=== PATIENT | female | born 1980 | race American Indian/Alaskan Native ===

== ENCOUNTER 2019-08-25 23:42 | Emergency (ER) | payer SELFPAY ==
[2019-08-25 23:48] VITALS: BP 144/73
[2019-08-26 00:55] LABS: Basophils # (Auto) 0.1 K/mm3 (0.0-0.1); Eosinophils # (Auto) 0.3 K/mm3 (0.0-0.4); Eosinophils % (Auto) 3.9 % (0.0-4.3); Hematocrit 23.6 % (30.3-42.9); Hemoglobin 7.5 gm/dl (10.1-14.3); Lymphocytes # (Auto) 2.2 K/mm3 (1.2-5.4); Lymphocytes % (Auto) 29.2 % (13.4-35.0); Mean Corpuscular HGB Conc 32 % (30-34); Monocytes # (Auto) 0.6 K/mm3 (0.0-0.8); Monocytes % (Auto) 8.2 % (0.0-7.3); Platelet Count 416 K/mm3 (140-440); Red Blood Count 3.68 M/mm3 (3.65-5.03); Red Cell Distribution Width 17.6 % (13.2-15.2)
[2019-08-26 00:56] LABS: Bacteria,Urine 1+ /HPF (Negative); Bilirubin,Urine NEG (Negative); Blood,Urine LG (Negative); Color,Urine Yellow (Yellow); Mucus,Urine FEW /HPF; Protein,Urine <15 mg/dL mg/dL (Negative); Urobilinogen,Urine < 2.0 mg/dL (<2.0)
[2019-08-26 01:00] LABS: Mean Corpuscular Volume 64 fl (79-97)
--- NOTE | 2019-08-26 02:06 | Emergency Department Report ---
ED Female HPI - General Chief complaint: Vaginal Bleeding Stated complaint: ABD PAIN Time Seen by Provider: 08/26/19 02:05 Source: patient Mode of arrival: Ambulatory Limitations: No Limitations - History of Present Illness Initial comments: Patient is a 39-year-old female that presents emergency room with complaints of vaginal bleeding and lower abdominal pain. Patient states her vaginal bleeding and abdominal pain started 30 days ago. Patient states that she went to another hospital and was found to have an ectopic and was given IM methotrexate. Patient was discharged from the hospital same day on 07/28/2019. Patient states her abdominal pain and vaginal bleeding or worsening. Patient states her abdominal pain is 8 out of 10. Patient describes the abdominal pain is lower abdominal pressure. Patient states the pain is better with rest and worse with movement and palpation. Patient denies nausea vomiting. Patient states she has not followed up or seen an SHIFT STACKER or had a repeat ultrasound since her initial ultrasound on 07/28/2019. Patient states she is not sexually active. She denies fever and chills. MD Complaint: vaginal bleeding, pelvic pain -: Gradual Location: suprapubic Severity: severe Quality: cramping, aching Consistency: constant Improves with: other Worsens with: movement, other Are you Now?: No Associated Symptoms: vaginal bleeding, abdominal pain. denies: vaginal discharge, nausea/vomiting, fever/chills, headaches, loss of appetite, dysuria, hematuria, rash, seizure, shortness of breath, syncope, weakness - Related Data Sexually active: No : 3 Para: 2 A: 1 Previous Rx's Medication Instructions Recorded Last Taken Type Iron Fum,Ps/Folic/Bcomp,C No.9 1 each PO BID 30 Days #60 capsule 08/26/19 Unknown Rx [Integra Plus Capsule] Allergies Allergy/AdvReac Type Severity Reaction Status Date / Time Penicillins Allergy Hives Verified 08/26/19 00:03 ED Review of Systems ROS: Stated complaint: ABD PAIN Other details as noted in HPI Constitutional: denies: chills, fever Eyes: denies: eye pain, eye discharge, vision change ENT: denies: ear pain, throat pain Respiratory: denies: cough, shortness of breath, wheezing Cardiovascular: denies: chest pain, palpitations Endocrine: no symptoms reported Gastrointestinal: abdominal pain. denies: nausea, diarrhea Genitourinary: abnormal menses. denies: urgency, dysuria, discharge Musculoskeletal: denies: back pain, joint swelling, arthralgia Skin: denies: rash, lesions Neurological: denies: headache, weakness, paresthesias Psychiatric: denies: anxiety, depression Hematological/Lymphatic: denies: easy bleeding, easy bruising ED Past Medical Hx - Past Medical History Previous Medical History?: Yes Additional medical history: Ectopic . Uterine fibroids. - Surgical History Past Surgical History?: No - Family History Family history: no significant - Social History Smoking Status: Current Every Day Smoker Substance Use Type: None - Medications Home Medications: Home Medications Medication Instructions Recorded Confirmed Last Taken Type Iron Fum,Ps/Folic/Bcomp,C No.9 1 each PO BID 30 Days #60 capsule 08/26/19 Unknown Rx [Integra Plus Capsule] ED Physical Exam - General Limitations: No Limitations General appearance: alert, in no apparent distress - Head Head exam: Present: atraumatic, normocephalic - Eye Eye exam: Present: normal appearance - ENT ENT exam: Present: mucous membranes moist - Neck Neck exam: Present: normal inspection - Respiratory Respiratory exam: Present: normal lung sounds bilaterally. Absent: respiratory distress - Cardiovascular Cardiovascular Exam: Present: regular rate, normal rhythm. Absent: systolic murmur, diastolic murmur, rubs, gallop - GI/Abdominal GI/Abdominal exam: Present: soft, tenderness (suprapubic tenderness), normal bowel sounds - Extremities Exam Extremities exam: Present: normal inspection - Back Exam Back exam: Present: normal inspection - Neurological Exam Neurological exam: Present: alert, oriented X3 - Psychiatric Psychiatric exam: Present: normal affect, normal mood - Skin Skin exam: Present: warm, dry, intact, normal color. Absent: rash ED Course Vital Signs 08/25/19 23:46 Temperature 99.1 F Pulse Rate 90 Respiratory 18 Rate Blood Pressure 144/73 O2 Sat by Pulse 98 Oximetry - Reevaluation(s) Reevaluation #1: Discussed all results and clinical findings with patient. I discussed plan of care patient. I discussed discharge instructions. Patient agrees with plan of care. Patient voiced understanding of discharge instructions. Patient is stable for discharge. Patient will be discharged home. 08/26/19 04:35 - Consultations Consultation #1: I discussed case with Dr. De Leon, SHIFT STACKER. Dr. De Leon states the patient stable for discharge and can be discharged home to follow up with her within 2 days in her office. An appointment for the patient has been sent for [address] De Leon recommends iron supplementation and rest. 08/26/19 04:28 ED Medical Decision Making - Lab Data Result diagrams: 08/26/19 00:17 - Radiology Data Radiology results: report reviewed ULTRASOUND PELVIS INDICATION: Vaginal bleeding. Recent ectopic . TECHNIQUE: Transvaginal. Duplex Color Doppler used: Yes. COMPARISON: None available FINDINGS: Uterus: Present. Size: 14.2 x 9.4 x 0.5 cm. Endometrial complex: The endometrial canal is mildly distended by fluid and contains hyperechoic material that may represent blood. Mass lesions: General is heterogeneity is seen throughout the uterus with multiple probable fibroids, the largest of which is located along the fundus and measures up to 8 cm. Additional findings: None. Right Ovary: Not visualized. Left Ovary: Not visualized. Urinary Bladder: Not seen. Free Fluid: Minimal. Additional Findings: None. IMPRESSION: 1. Small amount of fluid along the endometrial canal with possible blood products. 2. Multiple probable fibroids in the uterus. 3. Nonvisualization of the ovaries. - Medical Decision Making Condition is a 39-year-old female up since emergency room complaints of lower abdominal pain and vaginal bleeding. Patient had a recent ectopic and received methotrexate. Patient received methotrexate one month ago. Patient was at another hospital 07/28/2019. Patient has not followed Specialist or another hospital. Patient's labs were done. Patient ultrasound done. Patien t's ultrasound does not show signs of ectopic . Patient's ultrasound does show blood products and uterus. Patient found to be anemic. Patient stable for discharge. I discussed case with COURT REPORTER in the state the patient stable for discharge for discharge home and follow-up as an outpatient. Patient given discharge instructions. - Differential Diagnosis pain. Abdominal pain. Anemia. Ectopic . Vaginal bleeding. Critical care attestation.: If time is entered above; I have spent that time in minutes in the direct care of this critically ill patient, excluding procedure time. ED Disposition Clinical Impression: Vaginal bleeding Anemia Qualifiers: Anemia type: unspecified type Qualified Code(s): D64.9 - Anemia, unspecified Ectopic Qualifiers: Location of ectopic : unspecified location Intrauterine status: without intrauterine Qualified Code(s): O00.90 - Unspecified ectopic without intrauterine Abdominal pain Qualifiers: Abdominal location: lower abdomen, unspecified Qualified Code(s): R10.30 - Lower abdominal pain, unspecified Disposition: TO HOME OR SELFCARE Is pt being admited?: No Does the pt Need Aspirin: No Condition: Stable Instructions: Ectopic (ED), Menstruation (ED), Iron Rich Diet (ED), Iron Deficiency Anemia (ED), Anemia (ED), Bleeding (ED) Additional Instructions: Patient to follow-up with primary care in 2-3 days. Patient to follow-up with SHIFT STACKER in 2-3 days. I discussed patient's care with Dr. De Leon and the patient has an appointment with Dr. De Leon on Tuesday. Patient to take Tylenol or ibuprofen when necessary for pain. Patient to take medications as directed. Patient increase water. Patient to rest. Patient to return to ER if condition worsens. Prescriptions: Iron Fum,Ps/Folic/Bcomp,C No.9 [Integra Plus Capsule] 1 each PO BID 30 Days #60 capsule Referrals: [facility] MD ELEUTERIO [Primary Care Provider] - 2-3 Days SWAPNA TAI MD [Staff Physician] - 2-3 Days Time of Disposition: 04:34
--- NOTE | 2019-08-26 03:13 | Ultrasound Report ---
ULTRASOUND PELVIS INDICATION: Vaginal bleeding. Recent ectopic . TECHNIQUE: Transvaginal. Duplex Color Doppler used: Yes. COMPARISON: None available FINDINGS: Uterus: Present. Size: 14.2 x 9.4 x 0.5 cm. Endometrial complex: The endometrial canal is mildly distended by fluid and contains hyperechoic mate rial that may represent blood. Mass lesions: General is heterogeneity is seen throughout the uterus with multiple probable fibroids, the largest of which is located along the fundus and measures up to 8 cm. Additional findings: None. Right Ovary: Not visualized. Left Ovary: Not visualized. Urinary Bladder: Not seen. Free Fluid: Minimal. Additional Findings: None. IMPRESSION: 1. Small amount of fluid along the endometrial canal with possible blood products. 2. Multiple probable fibroids in the uterus. 3. Nonvisualization of the ovaries. Signer Name: Jordon Frank MD Signed: 08/26/2019 3:08 AM Workstation Name: [id number]
== END 2019-08-26 04:44 | disposition home or self-care (01) ==
LOC: ED 23:42
DX: O00.90 Unspecified ectopic pregnancy without intrauterine pregnancy (principal); O99.011 Anemia complicating pregnancy, first trimester; O99.331 Smoking (tobacco) complicating pregnancy, first trimester; Z79.899 Other long term (current) drug therapy; Z88.0 Allergy status to penicillin; Z3A.01 Less than 8 weeks gestation of pregnancy
CPT/HCPCS: 36415; 76830; 81001; 84702; 85025